=== PATIENT | female | born 1995 | race Caucasian/White ===

== ENCOUNTER 2017-08-24 13:34 | Emergency (ER) | payer SELFPAY | END 2017-08-24 16:43 | disposition home or self-care (01) | LOC: D.ER 13:34 | DX: J20.9 Acute bronchitis, unspecified (principal); F17.200 Nicotine dependence, unspecified, uncomplicated ==

== ENCOUNTER 2017-11-30 22:40 | Emergency (ER) | payer MEDICAID ==
[2017-12-01 00:07] LABS: HEMATOCRIT 46.3 % (36.0-48.0); HEMOGLOBIN 15.6 g/dL (12-16); LYMPHOCYTES 12.9 % (15-50); MCH 30.4 pg (26.0-34.0); MCHC 33.7 g/dL (31.0-37.0); MCV 90.3 fL (80.0-100.0); MEAN PLATELET VOLUME 9.7 fL (7.4-10.4); NEUTROPHILS 82.9 % (40-80); PLATELET COUNT 254 10x3/uL (130-400); RBC 5.13 10x6/uL (4.00-5.40); RDW 13.7 % (11.5-14.5); WBC 15.9 10x3/uL (4.8-10.8)
[2017-12-01 00:17] LABS: APPEARANCE CLEAR (CLEAR); BILIRUBIN NEGATIVE (NEGATIVE); COLOR YELLOW (YELLOW); GLUCOSE NEGATIVE (NEGATIVE); KETONE NEGATIVE (NEGATIVE); NITRITE NEGATIVE (NEGATIVE); PROTEIN NEGATIVE (NEGATIVE); UROBILINOGEN NORMAL (NORMAL)
[2017-12-01 00:29] LABS: ALKALINE PHOSPHATASE 68 U/L (46-116); ALT (SGPT) 27 U/L (10-68); AMYLASE - SERUM 21 U/L (25-115); BILIRUBIN - TOTAL 0.33 mg/dL (0.2-1.3); CALC OSMOLALITY 279 mosm/kg (275-300); CARBON DIOXIDE 25.8 mmol/L (21.0-32.0); CHLORIDE - SERUM 104 mmol/L (98-107); GLUCOSE 93 mg/dL (74-106); LIPASE 70 U/L (73-393); POTASSIUM - SERUM 3.8 mmol/L (3.5-5.1); PROTEIN - SERUM 6.3 g/dL (6.4-8.2); SODIUM 140 mmol/L (136-145); UREA NITROGEN 16 mg/dL (7-18); eGFR NON AFRICAN AMERICAN 75 mL/min (90-120)
[2017-12-01 00:33] LABS: CALCIUM 7.8 mg/dL (8.5-10.1)
== END 2017-12-01 01:55 | disposition home or self-care (01) ==
LOC: D.ER 22:40
PROVIDERS: Family Medicine
DX: R11.10 Vomiting, unspecified (principal); K52.9 Noninfective gastroenteritis and colitis, unspecified

== ENCOUNTER 2018-04-22 10:59 | Emergency (ER) | payer MEDICAID | END 2018-04-22 11:18 | disposition home or self-care (01) | LOC: D.ER 10:59 | DX: R07.9 Chest pain, unspecified (principal) ==

== ENCOUNTER 2018-04-24 07:39 | Emergency (ER) | payer MEDICAID ==
[~2018-04-24] VITALS: Ht 167.6 cm; Wt 125.0 kg
[2018-04-24 07:51] VITALS: BP 129/75; Ht 167.6 cm; Wt 125.0 kg
== END 2018-04-24 09:18 | disposition home or self-care (01) ==
LOC: D.ER 07:39
DX: R07.9 Chest pain, unspecified (principal)